=== PATIENT | female | born 1965 | race Hispanic/Latino ===

== ENCOUNTER 2016-05-23 13:31 | Observation (INO) | payer MEDICARE, OTHER ==
--- NOTE | 2016-05-23 14:52 | C.PDOC ---
History Of Present Illness 50 y/o female presents to the ED with complain of "not feeling well." Pt spoke to Dr Jose SHELDON who told her to come to ED for evaluation. Pt states she is "always dehydrated" and declines to discuss medical history any further. Pt denies fever, SOB, Chest pain or vomiting. Time Seen by Provider: 05/23/16 14:18 Chief Complaint (Nursing): GI Problem History Per: Patient Onset/Duration Of Symptoms: Hrs Current Symptoms Are (Timing): Still Present Severity: Mild Recent travel outside of the [place]: No Past Medical History Reviewed: Historical Data, Nursing Documentation, Vital Signs Vital Signs: Last Vital Signs Temp 98.5 F 05/23/16 13:47 Pulse 110 H 05/23/16 13:47 Resp 18 05/23/16 13:47 BP 138/96 H 05/23/16 13:47 Pulse Ox 98 05/23/16 14:55 - Medical History PMH: Anemia Other PMH: SLE Surgical History: Endoscopy (X3) - [facility] Procedures ESOPHAGOGASTRODUODENOSCOPY [EGD] W/CLOSED BIOPSY (09/17/14) Family History: States: Unknown Family Hx - Social History Hx Alcohol Use: No Hx Substance Use: No Review Of Systems Constitutional: Negative for: Fever Cardiovascular: Negative for: Chest Pain Respiratory: Negative for: Shortness of Breath Gastrointestinal: Negative for: Vomiting Physical Exam - Physical Exam Appears: Non-toxic, No Acute Distress Skin: Warm, Dry, No Rash Head: Atraumatic, Normacephalic Oral Mucosa: Moist Neck: Normal ROM, Supple Cardiovascular: Rhythm Regular, No Murmur Respiratory: Normal Breath Sounds, No Rales, No Rhonchi, No Wheezing Gastrointestinal/Abdominal: Soft, No Tenderness Extremity: Normal ROM Neurological/Psych: Oriented x3, Normal Speech ED Course And Treatment - Laboratory Results Result Diagrams: 05/23/16 15:14 05/23/16 15:14 O2 Sat by Pulse Oximetry: 98 (on room air) Pulse Ox Interpretation: Normal Medical Decision Making Medical Decision Making: Case discussed with dr Garcia Plan observe for IV fluids Disposition - Disposition Disposition: HOSPITALIZED Disposition Time: 16:53 Condition: FAIR Instructions: Weakness (ED) - Clinical Impression Clinical Impression: Weakness, Dehydration - Scribe Statement The provider has reviewed the documentation as recorded by the [address] Provider Attestation: All medical record entries made by the Blayneibniesha were at my direction and personally dictated by me. I have reviewed the chart and agree that the record accurately reflects my personal performance of the history, physical exam, medical decision making, and the department course for this patient. I have also personally directed, reviewed, and agree with the discharge instructions and disposition. Decision To Admit - Pt Status Changed To: Hospital Disposition Of: Observation - . Bed Request Type: Regular Admitting Physician: Larry Garcia Patient Diagnosis: Weakness, Dehydration
[2016-05-23] MEDS ORDERED: Sodium Chloride 0.9% 1,000 ML IV ONE (14:54)
[2016-05-23] MEDS ORDERED: Sodium Chloride 0.9% 1,000 ML ONE (15:13)
[2016-05-23 15:18] LABS: BASO # 0.1 K/uL (0.0-0.2); EOS # 0.1 K/uL (0.0-0.7); EOS % 1.2 % (0.0-4.0); HEMATOCRIT 32.3 % (34.0-47.0); LYMPH % 38.5 % (20.0-40.0); MEAN CELL VOLUME 79.7 fL (81.0-99.0); MEAN CORPUSCULAR HEMOGLOBIN 25.1 pg (27.0-31.0); MEAN CORPUSCULAR HGB CONC 31.5 g/dL (33.0-37.0); MEAN PLATELET VOLUME 7.6 fL (7.2-11.7); MONO # 0.3 K/uL (0.0-0.8); MONO % 6.6 % (0.0-10.0); NRBC % 0.1 % (0.0-2.0); RED CELL DISTRIBUTION WIDTH 18.7 % (11.5-14.5); WHITE BLOOD COUNT 5.1 K/uL (4.8-10.8)
[2016-05-23 15:29] LABS: CHLORIDE 103 mmol/L (98-107); POTASSIUM 3.7 mmol/L (3.6-5.2); SODIUM 142 mmol/L (132-148)
[2016-05-23 15:31] LABS: GFR AFRICAN-AMERICAN > 60
[2016-05-23 15:32] LABS: ALB/GLOB RATIO 1.5 (1.0-2.1); ALKALINE PHOSPHATASE 70 U/L (38-126); ALT/SGPT 22 U/L (9-52); AST/SGOT 66 U/L (14-36); BILIRUBIN,TOTAL 0.7 mg/dL (0.2-1.3); BLOOD UREA NITROGEN 14 mg/dL (7-17); CARBON DIOXIDE 25 mmol/L (22-30); GLUCOSE,RANDOM 85 mg/dL (65-105); TOTAL PROTEIN 7.6 g/dL (6.3-8.3)
[2016-05-23 15:33] LABS: CALCIUM 8.7 mg/dl (8.6-10.4)
--- NOTE | 2016-05-23 16:01 | RAD ---
PROCEDURE: CHEST RADIOGRAPH, 1 VIEW HISTORY: dehydration COMPARISON: 12/22/2014 FINDINGS: LUNGS: Clear. PLEURA: No pneumothorax or pleural fluid seen. CARDIOVASCULAR: Normal. OSSEOUS STRUCTURES: No significant abnormalities. VISUALIZED UPPER ABDOMEN: Normal. OTHER FINDINGS: None. IMPRESSION: No active disease.
[2016-05-23] MEDS: Dextrose 5%/0.45% NS 1,000 ML IV SCH (18:48)
[2016-05-24] MEDS: Dextrose 5%/0.45% NS 1,000 ML IV SCH ×4 (00:15→22:37)
--- NOTE | 2016-05-24 01:49 | CP.PCM.HP ---
History of Present Illness - History of Present Illness History of Present Illness: CHEIF COMPLAIN; SEVERE WEAKNESS, DIZINESS HPI; YOUNG 49 YEAR OLD WHITE FEMALE WELL KNOWN TO ME WITH PMH SIGNIFICANT FOR BULIMIA NERVOSA, DEPRESSION, ANEMIA, GERD WHO IS COMPLANIT WITH HER DIET, MEDICATION CAME IN WITH C/O EXCESSIVE FATGUE, NO APETITE AND NOT FEELING WELL, SHE C/O NAUSEA AT TIMES, VOMITTED TWICE TODAY.APPEARS DEPRESSED WITH FLAT AFFECT , DENIES ANY ALCOHOL ABUSE. Present on Admission - Present on Admission Any Indicators Present on Admission: No Review of Systems - Review of Systems Systems not reviewed;Unavailable: Acuity of Condition - Constitutional Constitutional: Anorexia, Fatigue, Lethargy, Malaise, Weakness - EENT Eyes: absent: As Per HPI, Blind Spots, Blurred Vision, Change in Vision, Decreased Night Vision, Diplopia, Discharge, Dry Eye, Exophthalmos, Floaters, Irritation, Itchy Eyes, Loss of Peripheral Vision, Pain, Photophobia, Requires Corrective Lenses, Sees Flashes, Spots in Vision, Tunnel Vision, Other Visual Disturbances, Loss of Vision, Other Nose/Mouth/Throat: absent: As Per HPI, Epistaxis, Nasal Congestion, Nasal Discharge, Nasal Obstruction, Nasal Trauma, Nose Pain, Post Nasal Drip, Sinus Pain, Sinus Pressure, Bleeding Gums, Change in Voice, Dental Pain, Dry Mouth, Dysphagia, Halitosis, Hoarsness, Lip Swelling, Mouth Lesions, Mouth Pain, Odynophagia, Sore Throat, Throat Swelling, Tongue Swelling, Facial Pain, Neck Pain, Neck Mass, Other - Breasts Breasts: absent: As Per HPI, Change in Shape, Mass, Pain, Nipple Discharge, Nipple Inversion, Skin Changes, Swelling, Other - Gastrointestinal Gastrointestinal: Abdominal Pain, Heartburn, Nausea, Vomiting - Genitourinary Genitourinary: absent: As Per HPI, Change in Urinary Stream, Difficulty Urinating, Dysuria, Flank Pain, Hematuria, Pyuria, Nocturia, Urinary Incontinence, Urinary Frequency, Urinary Hesitance, Urinary Urgency, Voiding Freq/Small Amts, Freq UTI, Hx Renal/Bladder Calculi, Hx /Renal Surgery, Bladder Distension, Other Past Patient History - Past Medical History & Family History Past Medical History?: Yes - Past Social History Smoking Status: Never Smoked - CARDIAC Hx Cardiac Disorders: No - PULMONARY Hx Respiratory Disorders: No - NEUROLOGICAL Hx Neurological Disorder: No - HEENT Hx HEENT Problems: No - RENAL Hx Chronic Kidney Disease: No - ENDOCRINE/METABOLIC Hx Systemic Lupus Erythematosus: Yes - HEMATOLOGICAL/ONCOLOGICAL Hx Anemia: Yes - INTEGUMENTARY Hx Dermatological Problems: No - MUSCULOSKELETAL/RHEUMATOLOGICAL Hx Musculoskeletal Disorders: No Hx Falls: Yes (2 days ago secondary to diziness) - GASTROINTESTINAL Hx Gastrointestinal Disorders: Yes Other/Comment: ABDOMINAL PAIN/DISCOMFORT - GENITOURINARY/GYNECOLOGICAL Hx Genitourinary Disorders: No - PSYCHIATRIC Hx Substance Use: No - SURGICAL HISTORY Hx Surgeries: Yes Other/Comment: PEG PLACEMENT. PEG removed 2 years ago - ANESTHESIA Hx Anesthesia: Yes Hx Anesthesia Reactions: No Hx Malignant Hyperthermia: No Meds Home Medications: Home Medication List Medication Instructions Recorded Confirmed Type Potassium Chloride 20 meq PO DAILY 3 Days 05/25/16 Rx Allergies/Adverse Reactions: Allergies Allergy/AdvReac Type Severity Reaction Status Date / Time No Known Allergies Allergy Verified 05/23/16 13:45 Physical Exam - Constitutional Appears: No Acute Distress, Agitated - Eye Exam Eye Exam: EOMI, Normal appearance, PERRL Pupil Exam: NORMAL ACCOMODATION, PERRL - ENT Exam ENT Exam: Mucous Membranes Dry - Respiratory Exam Respiratory Exam: Clear to Auscultation Bilateral, NORMAL BREATHING PATTERN - Cardiovascular Exam Cardiovascular Exam: REGULAR RHYTHM - GI/Abdominal Exam GI & Abdominal Exam: Normal Bowel Sounds, Soft. absent: Tenderness - Neurological Exam Neurological exam: Alert, CN II-XII Intact, Normal Gait, Oriented x3, Reflexes Normal - Psychiatric Exam Psychiatric exam: Anxious, Depressed, Flat Affect - Skin Skin Exam: Dry Results - Vital Signs Recent Vital Signs: Last Vital Signs Temp 98.2 F 05/24/16 00:00 Pulse 70 05/24/16 00:00 Resp 20 05/24/16 00:00 BP 128/74 05/24/16 00:00 Pulse Ox 98 05/24/16 00:00 - Labs Result Diagrams: 05/24/16 13:24 05/25/16 06:30 Assessment & Plan (1) Anemia Status: Chronic (2) Bulimia nervosa, extreme Status: Chronic (3) Weakness Status: Acute (4) Dehydration Status: Acute
[2016-05-24 13:27] LABS: BASO % 0.9 % (0.0-2.0); EOS # 0.1 K/uL (0.0-0.7); WHITE BLOOD COUNT 4.4 K/uL (4.8-10.8)
[2016-05-24 13:38] LABS: CHLORIDE 102 mmol/L (98-107)
[2016-05-24 13:39] LABS: POTASSIUM 3.3 mmol/L (3.6-5.2); SODIUM 134 mmol/L (132-148)
[2016-05-24 13:41] LABS: BLOOD UREA NITROGEN 5 mg/dL (7-17); CARBON DIOXIDE 22 mmol/L (22-30); GFR AFRICAN-AMERICAN > 60
[2016-05-24 13:42] LABS: CALCIUM 7.6 mg/dl (8.6-10.4); GLUCOSE,RANDOM 99 mg/dL (65-105)
[2016-05-24 13:50] LABS: EOS % 1.8 % (0.0-4.0); LYMPH % 22.6 % (20.0-40.0); MEAN CELL VOLUME 80.3 fL (81.0-99.0); MEAN CORPUSCULAR HEMOGLOBIN 24.5 pg (27.0-31.0); MEAN CORPUSCULAR HGB CONC 30.5 g/dL (33.0-37.0); MEAN PLATELET VOLUME 7.8 fL (7.2-11.7); MONO # 0.3 K/uL (0.0-0.8); MONO % 7.4 % (0.0-10.0); NRBC % 0.1 % (0.0-2.0); RED CELL DISTRIBUTION WIDTH 19.6 % (11.5-14.5)
[2016-05-24 15:45] LABS: MAGNESIUM 1.2 mg/dL (1.6-2.3)
[2016-05-24] MEDS ORDERED: Potassium Chloride 20 mEq 100 ML IVPB ONE ×2 (16:00→19:05)
--- NOTE | 2016-05-24 22:53 | CP.PCM.PN ---
Subjective - Date & Time of Evaluation Date of Evaluation: 05/24/16 Time of Evaluation: 09:30 - Subjective Subjective: pt seen and examined, is improving, feeling better, k is down to 3.2 mag down to 1.2, afebrile complains of duyspepsia deniesa ny nausea/vomitting Objective - Vital Signs/Intake and Output Vital Signs (last 24 hours): Temp Pulse Resp BP Pulse Ox 98.5 F 73 19 135/90 100 05/24/16 15:00 05/24/16 21:39 05/24/16 15:00 05/24/16 21:39 05/24/16 15:00 Intake and Output: 05/24/16 05/25/16 18:59 06:59 Intake Total 350 Balance 350 - Medications Medications: Current Medications Heparin Sodium (Porcine) (Heparin) 5,000 units SC Q12 [facility] Last Admin: 05/24/16 21:35 Dose: 5,000 units Dextrose/Sodium Chloride (Dextrose 5%/0.45% Ns 1000 Ml) 1,000 mls @ 100 mls/hr IV .Q10H [facility] Last Admin: 05/24/16 22:37 Dose: 100 mls/hr Pantoprazole Sodium (Protonix Inj) 40 mg IVP DAILY [facility] Last Admin: 05/24/16 10:26 Dose: 40 mg Zolpidem Tartrate (Ambien) 5 mg PO HS PRN PRN Reason: Insomnia Last Admin: 05/23/16 22:27 Dose: 5 mg - Labs Labs: 05/24/16 13:24 05/24/16 13:24 - Constitutional Appears: No Acute Distress - Head Exam Head Exam: ATRAUMATIC, NORMAL INSPECTION, NORMOCEPHALIC - Eye Exam Eye Exam: EOMI, Normal appearance, PERRL Pupil Exam: NORMAL ACCOMODATION, PERRL - Neck Exam Neck Exam: Full ROM, Normal Inspection. absent: Lymphadenopathy - Respiratory Exam Respiratory Exam: Clear to Ausculation Bilateral, NORMAL BREATHING PATTERN - Cardiovascular Exam Cardiovascular Exam: REGULAR RHYTHM, +S1, +S2. absent: Murmur - GI/Abdominal Exam GI & Abdominal Exam: Soft, Normal Bowel Sounds. absent: Tenderness Assessment and Plan (1) Anemia Status: Chronic (2) Bulimia nervosa, extreme Status: Chronic (3) Weakness Status: Acute (4) Dehydration Status: Acute
[2016-05-25 06:52] LABS: CHLORIDE 101 mmol/L (98-107); POTASSIUM 3.1 mmol/L (3.6-5.2); SODIUM 133 mmol/L (132-148)
[2016-05-25 06:55] LABS: GFR AFRICAN-AMERICAN > 60
[2016-05-25 06:56] LABS: CALCIUM 7.5 mg/dl (8.6-10.4); CARBON DIOXIDE 23 mmol/L (22-30); GLUCOSE,RANDOM 97 mg/dL (65-105)
[2016-05-25 07:03] LABS: BLOOD UREA NITROGEN < 2 mg/dL (7-17)
[2016-05-25 09:32] VITALS: O2SAT 100
[2016-05-25] MEDS ORDERED: Potassium Chloride 20 mEq ER Tab PO SCH ×3 (10:00→18:00)
--- NOTE | 2016-05-25 14:57 | CP.PCM.PN ---
Subjective - Date & Time of Evaluation Date of Evaluation: 05/25/16 Time of Evaluation: 12:30 - Subjective Subjective: Pt seen and examined today , states feels better today, denies any abdominal pain, N/V/D , tolerating diet Objective - Vital Signs/Intake and Output Vital Signs (last 24 hours): Temp Pulse Resp BP Pulse Ox 97.5 F L 69 20 130/90 100 05/25/16 09:30 05/25/16 09:30 05/25/16 09:30 05/25/16 09:30 05/25/16 09:30 Intake and Output: 05/25/16 05/25/16 06:59 18:59 Intake Total 1000 Balance 1000 - Medications Medications: Current Medications Heparin Sodium (Porcine) (Heparin) 5,000 units SC Q12 [facility] Last Admin: 05/25/16 11:19 Dose: 5,000 units Dextrose/Sodium Chloride (Dextrose 5%/0.45% Ns 1000 Ml) 1,000 mls @ 100 mls/hr IV .Q10H [facility] Last Admin: 05/24/16 22:37 Dose: 100 mls/hr Pantoprazole Sodium (Protonix Inj) 40 mg IVP DAILY [facility] Last Admin: 05/25/16 11:19 Dose: 40 mg Potassium Chloride (K-Dur 20 Meq Er Tab) 40 meq PO DAILY [facility] Stop: 05/26/16 10:01 Last Admin: 05/25/16 11:55 Dose: 40 meq Potassium Chloride (K-Dur 20 Meq Er Tab) 20 meq PO DAILY [facility] Stop: 05/25/16 15:01 Zolpidem Tartrate (Ambien) 5 mg PO HS PRN PRN Reason: Insomnia Last Admin: 05/24/16 23:55 Dose: 5 mg - Labs Labs: 05/24/16 13:24 05/25/16 06:30 Assessment and Plan - Assessment and Plan (Free Text) Assessment: A/P 50 YR OLD FEMALE ADMITTED FOR DEHYDRATION VSS- STABLE A FEBRILE labs- 3.1 today replaced with k- total of 60 meq D/W with Dr. Garcia, stable for discharge home today and f/u with Dr. Garcia office in 1 week Discharge plan discussed with patient , who understands and agrees with plan Pt insstructed to returns to ED if symptoms returns
[2016-05-25 16:35] VITALS: BP 131/85; PULSE 67; RESP 18; TEMP 98.1
--- NOTE | 2016-05-26 00:56 | CP.PCM.DIS ---
Provider - Provider Date of Admission: 05/23/16 16:15 Attending physician: Larry Garcia MD Time Spent in preparation of Discharge (in minutes): 30 Diagnosis - Discharge Diagnosis (1) Anemia Status: Chronic (2) Bulimia nervosa, extreme Status: Chronic (3) Weakness Status: Acute (4) Dehydration Status: Acute Hospital Course - Lab Results Lab Results: Most Recent Lab Values WBC 4.4 K/uL (4.8-10.8) L 05/24/16 13:24 RBC 3.99 Mil/uL (3.80-5.20) 05/24/16 13:24 Hgb 9.8 g/dL (11.0-16.0) L 05/24/16 13:24 Hct 32.0 % (34.0-47.0) L 05/24/16 13:24 MCV 80.3 fL (81.0-99.0) L 05/24/16 13:24 MCH 24.5 pg (27.0-31.0) L 05/24/16 13:24 MCHC 30.5 g/dL (33.0-37.0) L 05/24/16 13:24 RDW 19.6 % (11.5-14.5) H 05/24/16 13:24 Plt Count 191 K/uL (130-400) 05/24/16 13:24 MPV 7.8 fL (7.2-11.7) 05/24/16 13:24 Neut % (Auto) 67.3 % (50.0-75.0) 05/24/16 13:24 Lymph % (Auto) 22.6 % (20.0-40.0) 05/24/16 13:24 [place] % (Auto) 7.4 % (0.0-10.0) 05/24/16 13:24 Eos % (Auto) 1.8 % (0.0-4.0) 05/24/16 13:24 Baso % (Auto) 0.9 % (0.0-2.0) 05/24/16 13:24 Neut # 3.0 K/uL (1.8-7.0) 05/24/16 13:24 Lymph # 1.0 K/uL (1.0-4.3) 05/24/16 13:24 [place] # 0.3 K/uL (0.0-0.8) 05/24/16 13:24 Eos # 0.1 K/uL (0.0-0.7) 05/24/16 13:24 Baso # 0.0 K/uL (0.0-0.2) 05/24/16 13:24 Sodium 133 mmol/L (132-148) 05/25/16 06:30 Potassium 3.1 mmol/L (3.6-5.2) L 05/25/16 06:30 Chloride 101 mmol/L (98-107) 05/25/16 06:30 Carbon Dioxide 23 mmol/L (22-30) 05/25/16 06:30 Anion Gap 12 (10-20) 05/25/16 06:30 BUN < 2 mg/dL (7-17) L 05/25/16 06:30 Creatinine 0.5 MG/DL (0.7-1.2) L 05/25/16 06:30 Est GFR ( Amer) > 60 05/25/16 06:30 Est GFR (Non-Af Amer) > 60 05/25/16 06:30 Random Glucose 97 mg/dL (65-105) 05/25/16 06:30 Calcium 7.5 mg/dl (8.6-10.4) L 05/25/16 06:30 Magnesium 2.2 mg/dL (1.6-2.3) 05/25/16 09:00 Total Bilirubin 0.7 mg/dL (0.2-1.3) 05/23/16 15:14 AST 66 U/L (14-36) H D 05/23/16 15:14 ALT 22 U/L (9-52) 05/23/16 15:14 Alkaline Phosphatase 70 U/L (38-126) 05/23/16 15:14 Total Protein 7.6 g/dL (6.3-8.3) 05/23/16 15:14 Albumin 4.5 g/dL (3.5-5.0) 05/23/16 15:14 Globulin 3.1 gm/dL (2.2-3.9) 05/23/16 15:14 Albumin/Globulin Ratio 1.5 (1.0-2.1) 05/23/16 15:14 - Hospital Course Hospital Course: Pt seen and examined today , states feels better today, denies any abdominal pain, N/V/D , tolerating diet is for discharge today Discharge Exam - Head Exam Head Exam: ATRAUMATIC, NORMAL INSPECTION, NORMOCEPHALIC - Eye Exam Eye Exam: EOMI - ENT Exam ENT Exam: Mucous Membranes Moist - Respiratory Exam Respiratory Exam: Clear to PA & Lateral, NORMAL BREATHING PATTERN - Cardiovascular Exam Cardiovascular Exam: REGULAR RHYTHM, +S1, +S2 - GI/Abdominal Exam GI & Abdominal Exam: Normal Bowel Sounds Discharge Plan - Discharge Medications Prescriptions: Potassium Chloride 20 meq PO DAILY 3 Days - Follow Up Plan Condition: FAIR Disposition: HOME/ ROUTINE Instructions: Potassium Chloride (By mouth), Weakness (ED) Additional Instructions: f/u with Dr. Garcia office in 1 week Continue k dur for 3 more days Referrals: Larry Garcia MD [Staff Provider] -
== END 2016-05-25 17:20 | disposition home or self-care (01) ==
LOC: C.ER 13:31 → C.5T 16:15
PROVIDERS: ADMIT Internal Medicine; ATTEND Internal Medicine
DX: E86.0 Dehydration (principal); F50.2 Bulimia nervosa; K21.9 Gastro-esophageal reflux disease without esophagitis; D64.9 Anemia, unspecified; Z68.1 Body mass index [BMI] 19.9 or less, adult
CPT/HCPCS: 36415; 71010; 80048; 80053; 83735; 85025; 96360; 99285; C9113; G0378; J1644; J3475; J3480; J7040; J7042

== ENCOUNTER 2018-03-22 21:49 | Emergency (ER) | payer MEDICARE, OTHER ==
[2018-03-22] MEDS ORDERED: Sodium Chloride 0.9% 1,000 ML IV ONE (23:11)
--- NOTE | 2018-03-22 23:11 | C.PDOC ---
History Of Present Illness 52 year old female presents to the ED c/o generalized aches and discomfort. Patient reports she has been unable to eat for the past 3 weeks, states she has eating disfunction. Patient is unable to pin point a particular complaint. Federico singleton denies fever, chills, nausea, vomit, diarrhea, weakness numbness. Time Seen by Provider: 03/22/18 22:39 Chief Complaint (Nursing): Pain, Chronic History Per: Patient History/Exam Limitations: no limitations Onset/Duration Of Symptoms: Days Current Symptoms Are (Timing): Still Present Recent travel outside of the [place]: No Additional History Per: Patient Past Medical History Reviewed: Historical Data, Nursing Documentation, Vital Signs Vital Signs: Last Vital Signs Temp 98.2 F 03/22/18 21:58 Pulse 116 H 03/22/18 21:58 Resp 18 03/22/18 21:58 BP 131/92 H 03/22/18 21:58 Pulse Ox 97 03/22/18 21:58 - Medical History PMH: Anemia Denies: Chronic Kidney Disease Surgical History: Endoscopy (X3) - [facility] Procedures ESOPHAGOGASTRODUODENOSCOPY [EGD] W/CLOSED BIOPSY (09/17/14) Family History: States: Unknown Family Hx - Social History Hx Alcohol Use: Yes Hx Substance Use: No - Immunization History Hx Tetanus Toxoid Vaccination: No Hx Influenza Vaccination: No Hx Pneumococcal Vaccination: No Review Of Systems Constitutional: Positive for: Malaise. Negative for: Fever, Chills Cardiovascular: Negative for: Chest Pain, Palpitations Gastrointestinal: Negative for: Nausea, Vomiting, Abdominal Pain Neurological: Negative for: Weakness, Numbness, Headache, Dizziness Physical Exam - Physical Exam Appears: Non-toxic, No Acute Distress Skin: Warm, Dry Head: Normacephalic Eye(s): bilateral: Normal Inspection Oral Mucosa: Dry Neck: Supple Chest: Symmetrical Cardiovascular: Rhythm Regular Respiratory: No Rales, No Rhonchi, No Wheezing Gastrointestinal/Abdominal: Soft, No Tenderness, No Guarding, No Rebound Extremity: Bilateral: Atraumatic, Normal Color And Temperature, Normal ROM Neurological/Psych: Oriented x3, Normal Speech, Normal Cognition Gait: Steady ED Course And Treatment - Laboratory Results Result Diagrams: 03/22/18 23:33 03/22/18 23:33 ECG: Interpreted By Me, Viewed By Me ECG Rhythm: Sinus Rhythm (105), Nonspecific Changes O2 Sat by Pulse Oximetry: 97 (ON RA) Pulse Ox Interpretation: Normal - Radiology CXR: Interpreted by Me, Viewed By Me CXR Interpretation: No: Infiltrates, Fracture, Pnemothorax Progress Note: Plan: - Labs. - EKG. - CXR. - IV fluids. - UA. 4:15 AM vitals stable.arousable,. no complaints Reevaluation Time: 05:37 Reassessment Condition: Improved Disposition Counseled Patient/Family Regarding: Studies Performed, Diagnosis, Need For Followup - Disposition Referrals: Larry Garcia MD [Staff Provider] - Disposition: HOME/ ROUTINE Disposition Time: 23:10 Condition: FAIR Additional Instructions: Please return if symptoms recur Instructions: Alcohol Abuse and Alcoholism (DC) Forms: [employer] Connect (Pashto) - Clinical Impression Clinical Impression: Alcohol intoxication - Scribe Statement The provider has reviewed the documentation as recorded by the Scribe Memo Franco All medical record entries made by the Scribe were at my direction and personally dictated by me. I have reviewed the chart and agree that the record accurately reflects my personal performance of the history, physical exam, medical decision making, and the department course for this patient. I have also personally directed, reviewed, and agree with the discharge instructions and disposition.
[2018-03-22 23:38] LABS: BASO % 0.6 % (0.0-2.0); EOS % 0.3 % (0.0-4.0); HEMOGLOBIN 13.5 g/dL (11.0-16.0); LYMPH # 2.5 K/uL (1.0-4.3); LYMPH % 44.3 % (20.0-40.0); MEAN CELL VOLUME 94.8 fL (81.0-99.0); MEAN CORPUSCULAR HEMOGLOBIN 30.9 pg (27.0-31.0); MEAN CORPUSCULAR HGB CONC 32.6 g/dL (33.0-37.0); MEAN PLATELET VOLUME 8.3 fL (7.2-11.7); MONO # 0.2 K/uL (0.0-0.8); MONO % 3.3 % (0.0-10.0); NEUT # 2.9 K/uL (1.8-7.0); NEUT % 51.5 % (50.0-75.0); NRBC % 0.2 % (0.0-2.0); RBC 4.37 Mil/uL (3.80-5.20); RED CELL DISTRIBUTION WIDTH 13.7 % (11.5-14.5); WHITE BLOOD COUNT 5.7 K/uL (4.8-10.8)
[2018-03-22 23:52] LABS: ALB/GLOB RATIO 1.6 (1.0-2.1); ALBUMIN 4.6 g/dL (3.5-5.0); ALT/SGPT 79 U/L (9-52); AST/SGOT 207 U/L (14-36); BLOOD UREA NITROGEN 16 mg/dL (7-17); CALCIUM 8.8 mg/dl (8.6-10.4); GFR NON-AFRICAN AMERICAN > 60
[2018-03-23 06:39] VITALS: BP 128/72; PULSE 82; RESP 20; TEMP 98; O2SAT 98
--- NOTE | 2018-03-23 13:57 | RAD ---
Date of service: 03/22/2018 PROCEDURE: CHEST RADIOGRAPH, 1 VIEW HISTORY: SOB COMPARISON: Comparison is made with the previous study dated 05/23/2016 FINDINGS: LUNGS: Clear. PLEURA: No pneumothorax or pleural fluid seen. CARDIOVASCULAR: No aortic atherosclerotic calcification present. Normal. OSSEOUS STRUCTURES: No significant abnormalities. VISUALIZED UPPER ABDOMEN: Normal. OTHER FINDINGS: None. IMPRESSION: No active disease.
--- NOTE | 2018-03-25 09:40 | CARD ---
APPROVED REPORT Date of service: 03/22/2018 EKG Measurement Heart [id number] <Conclusion> Sinus tachycardia Possible Left atrial enlargement Possible Anterior infarct, age undetermined Abnormal ECG
== END 2018-03-23 06:37 | disposition home or self-care (01) ==
LOC: C.ER 21:49
DX: F10.129 Alcohol abuse with intoxication, unspecified (principal); Y90.8 Blood alcohol level of 240 mg/100 ml or more
CPT/HCPCS: 71045; 80053; 83735; 84443; 85025; 86850; 86900; 93005; 99284; G0480; J7030